=== PATIENT | female | born 1975 | race Caucasian/White ===

== ENCOUNTER 2023-06-28 23:31 | Emergency (ER) | payer OTHER ==
[~2023-06-28] VITALS: Ht 157.5 cm; Wt 73.5 kg
[~2023-06-28 23:31] MED LIST: FERR325E14 PO; IBUP-1842 PO
[2023-06-28 23:42] VITALS: BP 133/86; PULSE 81; RESP 16; TEMP 99; O2SAT 100
[2023-06-29] MEDS ORDERED: NEOMYCIN/POLYMYXIN/BACITRACIN 0.9 GM/1 PKT TP STA (00:44)
[2023-06-29] MEDS ORDERED: LIDOCAINE MPF 1% 10 MG/ML VIAL INJ ONE (00:45)
[2023-06-29 01:54] VITALS: BP 133/86; PULSE 81; RESP 16; TEMP 99; O2SAT 100
== END 2023-06-29 01:54 | disposition home or self-care (01) ==
LOC: MED 23:31
DX: S61.512A Laceration without foreign body of left wrist, initial encounter (principal); Z79.899 Other long term (current) drug therapy; Z79.1 Long term (current) use of non-steroidal anti-inflammatories (NSAID); W45.8XXA Other foreign body or object entering through skin, initial encounter; Y93.G1 Activity, food preparation and clean up; Y92.89 Other specified places as the place of occurrence of the external cause; Y99.8 Other external cause status
CPT/HCPCS: 12002; 90471; 90715; 99283; J2001

== ENCOUNTER 2024-04-24 09:36 | Emergency (ER) | payer OTHER ==
[~2024-04-24] VITALS: Ht 162.6 cm; Wt 77.3 kg
[2024-04-24 09:42] VITALS: BP 128/77; PULSE 71; RESP 18; TEMP 97.2; O2SAT 99
[2024-04-24] MEDS ORDERED: METH-1681 PO (10:53)
[2024-04-24 10:54] LABS: APPEARANCE,URINE CLEAR (CLEAR); BILIRUBIN,URINE NEGATIVE (NEGATIVE); BLOOD, URINE 3+ (NEGATIVE); COLOR,URINE YELLOW (YELLOW); LEUKOCYTE ESTERASE ,URINE 1+ (NEGATIVE); NITRITE, URINE NEGATIVE (NEGATIVE); PROTEIN,URINE NEGATIVE (NEGATIVE); UGLUCOSE NEGATIVE (NEGATIVE); UROBILINOGEN,URINE 0.2 EU/dL (0.2 - 1)
[2024-04-24] MEDS ORDERED: CEPH-588 PO (11:17)
[2024-04-24 11:47] LABS: BACTERIA,URINE FEW /HPF (None Seen); SQUAMOUS EPITHELIAL CELL,UR 4-10 (MOD) /LPF (0-3 (FEW)); WBC,URINE 16-25 (MOD) /HPF (0-5)
== END 2024-04-24 11:40 | disposition home or self-care (01) ==
LOC: MED 09:36
DX: N39.0 Urinary tract infection, site not specified (principal); M54.50 Low back pain, unspecified; Z79.899 Other long term (current) drug therapy
CPT/HCPCS: 81001; 81025; 87086; 99283